=== PATIENT | male | born 1930 | race Caucasian/White ===

== ENCOUNTER 2017-05-06 04:22 | Inpatient (IN) | payer OTHER ==
[2017-05-06] VITALS (7 sets, daily range): BP systolic 99–146; BP diastolic 60–89; PULSE 62–87; TEMP 36.9–37; O2SAT 90–94; Ht 167.6 cm; Wt 77.5 kg
[~2017-05-06] VITALS: Ht 167.6 cm; Wt 77.5 kg
[~2017-05-06 04:22] MED LIST: ALPR0.25 PO; AMLO-110 PO; ASPI-435 PO; LISI1TAB3 PO; MULT-188 PO; MULT-506 PO; PRLSR20 PO; SIMV20TA2 PO; SULF800T23 PO; WARF2TAB PO; WARF5TAB90 PO
--- NOTE | 2017-05-06 04:42 | EMERGENCY ROOM VISIT NOTE ---
History Report prepared by Jeremiah: Caprice Ray Under the Supervision of: Dr. Justice Mcnulty M.D. First contact with patient: 04:34 Chief Complaint: RESPIRATORY PROBLEMS Stated Complaint: HARD TO BREATHE History of Present Illness The patient is a 86 year old male who presents to the Emergency Room with complaints of shortness of breath beginning prior to arrival. The patient states that he had indigestion earlier today and that he has been coughing frequently. He denies falling or hitting his head. Additionally, the patient denies any headaches, abdominal pain, and chest pain. The patient states that he is on Coumadin. Source of History: patient Onset: prior to arrival Position: chest Quality: other (shortness of breath) Associated Symptoms: + cough, No headache Review of Systems See HPI for pertinent positives & negatives. A total of 10 systems reviewed and were otherwise negative. Past Medical & Surgical Medical Problems: (1) Atrial fibrillation (2) left hip DJD Family History No pertinent family history stated. Social History Smoking Status: Never Smoker Drug Use: none Marital Status: Housing Status: lives with significant other Occupation Status: retired Current/Historical Medications Scheduled Amlodipine (Norvasc), 5 MG PO DAILY Aspirin (Aspirin 81), 81 MG PO DAILY Lisinopril (Zestril), 30 MG PO DAILY Multiple Vitamins W/ Minerals (Ocuvite), 1 TAB PO DAILY Multivitamin (Multivitamin), 1 TAB PO DAILY Omeprazole (Prilosec), 20 MG PO DAILY Simvastatin (Zocor), 20 MG PO HS Warfarin Sod (Coumadin), 5 MG PO 5XWK Warfarin Sod (Coumadin), 7.5 MG PO 2XWK Scheduled PRN Alprazolam (Xanax), 0.25 MG PO TID PRN for Anxiety/Agitation Allergies Coded Allergies: Iodinated Diagnostic Agents (Unverified Allergy, Unknown, HIVES, 05/30/15) Physical Exam Vital Signs Date Time Temp Pulse Resp B/P (MAP) Pulse Ox O2 Delivery O2 Flow Rate FiO2 05/06/17 06:06 65 18 122/67 98 Nasal Cannula 2.0 05/06/17 04:40 95 05/06/17 04:37 85 Room Air 05/06/17 04:26 36.7 79 19 163/79 85 Room Air Physical Exam GENERAL: Patient is unwell appearing and in minimal distress. HEENT: No acute trauma, normocephalic atraumatic, mucous membranes moist, no nasal congestion, no scleral icterus. NECK: No stridor, no adenopathy, no meningismus, trachea is midline. LUNGS: No dyspnea. No wheeze, no rhonchi. Diffuse crackles. Decreased breath sounds in right lower lung. HEART: Regular rate and rhythm. No murmurs, rubs, gallops appreciated. ABDOMEN: Soft, nontender, bowel sounds positive, no masses appreciated, no peritonitis. BACK: No midline tenderness, no CVA tenderness EXTREMITIES: Normal motion all extremities, no cyanosis, no edema. NEUROLOGIC: Alert and oriented, no acute motor or sensory deficits, no focal weakness, cranial nerves grossly intact. SKIN: No rash, no jaundice, no diaphoresis. Medical Decision & Procedures ER Provider Diagnostic Interpretation: X ray results are stated below per my interpretation and the radiologist's interpretation. 1 view: Large right sided infiltrate. No effusion. Mildly enlarged heart. Pacemaker in left upper chest. Laboratory Results 05/06/17 04:42 Red Blood Count 4.60, Mean Corpuscular Volume 92.8, Mean Corpuscular Hemoglobin 31.7, Mean Corpuscular Hemoglobin Concent 34.2, Mean Platelet Volume 9.0, Neutrophils (%) (Auto) 88.1, Lymphocytes (%) (Auto) 8.3, Monocytes (%) (Auto) 2.7, Eosinophils (%) (Auto) 0.5, Basophils (%) (Auto) 0.1, Neutrophils # (Auto) 9.82, Lymphocytes # (Auto) 0.93, Monocytes # (Auto) 0.30, Eosinophils # (Auto) 0.06, Basophils # (Auto) 0.01 05/06/17 04:42 Test 05/06/17 04:42 05/06/17 04:55 05/06/17 05:58 White Blood Count 11.15 K/uL (4.8-10.8) Red Blood Count 4.60 M/uL (4.7-6.1) Hemoglobin 14.6 g/dL (14.0-18.0) Hematocrit 42.7 % (42-52) Mean Corpuscular Volume 92.8 fL (80-100) Mean Corpuscular Hemoglobin 31.7 pg (25-34) Mean Corpuscular Hemoglobin Concent 34.2 g/dl (32-36) Platelet Count 190 K/uL (130-400) Mean Platelet Volume 9.0 fL (7.4-10.4) Neutrophils (%) (Auto) 88.1 % Lymphocytes (%) (Auto) 8.3 % Monocytes (%) (Auto) 2.7 % Eosinophils (%) (Auto) 0.5 % Basophils (%) (Auto) 0.1 % Neutrophils # (Auto) 9.82 K/uL (1.4-6.5) Lymphocytes # (Auto) 0.93 K/uL (1.2-3.4) Monocytes # (Auto) 0.30 K/uL (0.11-0.59) Eosinophils # (Auto) 0.06 K/uL (0-0.5) Basophils # (Auto) 0.01 K/uL (0-0.2) RDW Standard Deviation 49.6 fL (36.4-46.3) RDW Coefficient of Variation 14.7 % (11.5-14.5) Immature Granulocyte % (Auto) 0.3 % Immature Granulocyte # (Auto) 0.03 K/uL (0.00-0.02) Prothrombin Time 21.4 SECONDS (9.0-12.0) Prothromb Time International Ratio 1.9 (0.9-1.1) Activated Partial Thromboplast Time 29.2 SECONDS (21.0-31.0) Partial Thromboplastin Ratio 1.1 Anion Gap 7.0 mmol/L (3-11) Est Creatinine Clear Calc Drug Dose 43.3 ml/min Estimated GFR () 63.1 Estimated GFR (Non- 54.4 BUN/Creatinine Ratio 21.8 (10-20) Calcium Level 8.2 mg/dl (8.5-10.1) Magnesium Level 2.0 mg/dl (1.8-2.4) Total Creatine Kinase 199 U/L (39-308) Creatine Kinase MB 3.8 ng/ml (0.5-3.6) Creatine Kinase MB Ratio 1.9 (0-3.0) Troponin I 0.022 ng/ml (0-0.045) Pro-B-Type Natriuretic Peptide 1732 pg/ml (0-1800) Bedside Lactic Acid Venous 3.14 mmol/L (0.90-1.70) Laboratory results as reviewed by me. Medications Administered Medications (Trade) Dose Ordered Sig/Jace Route Start Time Stop Time Status Last Admin Dose Admin Levofloxacin (Levaquin / D5W) 750 mg NOW STAT IV 05/06/17 05:07 05/06/17 05:08 DC 05/06/17 05:12 750 MG Sodium Chloride 1,000 ml @ 999 mls/hr Q1H1M STAT IV 05/06/17 05:12 05/06/17 06:12 DC 05/06/17 05:55 999 MLS/HR ECG Indication: SOB/dyspnea Rate (beats per minute): 69 Rhythm: atrial fibrillation Findings: RBBB, T-wave inversion (deep inferior and lateral), other (period paced complexes) ED Course 0434: The patient was evaluated in room A10. A complete history and physical exam was performed. 0506: The patient reports feeling much better on nasal cannula. 0507: Ordered Levofloxacin 750 mg IV. 1512: Ordered Sodium Chloride 1,000 ml @ 999 mls/hr IV. 0545: Ordered Methylprednisolone Sodium Succinate 40 mg//Syringe 0.64 @ 1.5 mls/ min IV. 0553: I checked on the patient and he is stable. 0600: Upon reevaluation, the patient is resting. Discussed results and treatment plan with the patient. He verbalized understanding and agreement with the treatment plan. The patient will be evaluated for further management. Medical Decision Differential: Infectious, Reactive Airway Disease, Pneumonia, Pneumothorax, COPD , CHF, ACS, Pulmonary Embolism, MSK, GI, Dissection, amongst other etiologies entertained. Blood pressure screening: Patient was found to have an elevated blood pressure, but will be admitted by hospitalist with further treatment/management. Medication Reconciliation: I attest that I have personally reviewed the patient 's current medication list. 86 yr old male arrives with acutely worsening SHOB over last 12-24 hours. Hypoxia with quite poor lung sounds, especially RLL. CXR with large right infiltrate. WBC just mild elevation. No fever. Lactic acid elevated though suspect this is more hypoxia related rather than sepsis. Will hydrate with 1 L NSS as I feel overly aggressive hydration would lead to acute CHF. Feeling much better with NC O2. May require CT chest at some point though currently will defer to hospitalist as he is stable and feeling better with NC O2. Consults Time Called: [phone] Consulting Physician: Dr. Wong- Internal Medicine Returned Call: 05 Discussed the patient's case. The patient will be evaluated for further treatment and disposition. Impression Primary Impression: Pneumonia involving right lung Additional Impressions: Hypoxia Lactic acidosis Scribe Attestation The scribe's documentation has been prepared under my direction and personally reviewed by me in its entirety. I confirm that the note above accurately reflects all work, treatment, procedures, and medical decision making performed by me. Departure Information Dispostion Being Evaluated By Hospitalist Referrals Kj Elkins D.ORobin (PCP) Patient Instructions [facility] Problem Qualifiers
[2017-05-06 04:56] LABS: BASO % 0.1 %; BASO ABS # 0.01 K/uL (0-0.2); COMPLETE YES; EOS % 0.5 %; HEMATOCRIT 42.7 % (42-52); IG% 0.3 %; LYMPH % 8.3 %; LYMPH ABS # 0.93 K/uL (1.2-3.4); MEAN CELL VOLUME 92.8 fL (80-100); MEAN CORPUSCULAR HEMOGLOBIN 31.7 pg (25-34); MEAN CORPUSCULAR HGB CONC 34.2 g/dl (32-36); MONO % 2.7 %; NEUT % 88.1 %; PLATELET COUNT 190 K/uL (130-400); WHITE BLOOD COUNT 11.15 K/uL (4.8-10.8)
[2017-05-06] MEDS ORDERED: LEVAQUIN 750MG / 150ML D5W IV STA (05:07)
[2017-05-06 05:08] LABS: INR 1.9 (0.9-1.1); PARTIAL THROMBOPLASTIN RATIO 1.1; PROTHROMBIN TIME (PATIENT) 21.4 SECONDS (9.0-12.0)
[2017-05-06] MEDS ORDERED: SODIUM CHLORIDE 0.9% 1000ML 1,000 ML IV STA (05:12)
[2017-05-06] MEDS ORDERED: CMD/25 PO ×2 (05:21)
[2017-05-06 05:29] LABS: BUN/CREATININE RATIO 21.8 (10-20); CALCIUM 8.2 mg/dl (8.5-10.1); CREATININE 1.2 mg/dl (0.60-1.40)
[2017-05-06 05:34] LABS: CKMB/CK RATIO 1.9 (0-3.0)
[2017-05-06] MEDS ORDERED: METHYLPREDNISOLONE IV 40 MG in SYRINGE 0 ML IV ONE (05:45)
[2017-05-06] MEDS ORDERED: BENZONATATE 100MG CAP PO PRN (06:45)
[2017-05-06] MEDS ORDERED: ALBUT/IPRATROP 3MG/0.5MG NEB 3 ML VIAL INH PRN (06:45)
[2017-05-06] MEDS ORDERED: ALPRAZOLAM 0.25 MG TAB PO PRN (06:45)
[2017-05-06] MEDS ORDERED: ACETAMINOPHEN 325 MG TAB PO PRN (06:45)
--- NOTE | 2017-05-06 06:48 | DIAGNOSTIC IMAGING REPORT ---
CHEST ONE VIEW PORTABLE CLINICAL HISTORY: [facility] dyspnea COMPARISON STUDY: 03/19/2014 FINDINGS: Diffuse parenchymal infiltrate right hemithorax. Underlying nodular component. Left lung is clear. Diaphragms are smooth. Heart is moderately enlarged. IMPRESSION: Diffuse parenchymal infiltrate somewhat nodular appearance right lung. Electronically signed by: Carlos Bolanos M.D. 05/06/2017 6:47 AM Dictated Date/Time: 05/06/2017 6:46 AM
[2017-05-06] MEDS ORDERED: SODIUM CHLORIDE 0.45% 1000ML 1,000 ML IV ONE (07:15)
[2017-05-06] MEDS: IPRATROPIUM BROMIDE NEB SOLN 0.02% 2.5 ML VIAL INH SCH ×3 (09:00→18:30)
[2017-05-06] MEDS: LEVALBUTEROL 1.25MG/0.5ML NEB INH SCH ×3 (09:00→18:30)
[2017-05-06] MEDS ORDERED: LEVALBUTEROL/IPRATROPIUM NEB INH SCH (09:00)
--- NOTE | 2017-05-06 09:32 | HISTORY & PHYSICAL EXAMINATION ---
DATE OF ADMISSION: 05/06/2017 PRIMARY CARE PHYSICIAN: Dr. Lor Elkins CHIEF COMPLAINT: Cough, shortness of breath. HISTORY OF PRESENT ILLNESS: History obtained from patient and records. Medical history significant for Afib status post PPM on anticoagulation, hypertension, past tobacco abuse. Recent confinement in May of 2015 for left upper extremity cellulitis hematoma. Yesterday, patient noted some stomach upset. Denies some nausea, no emesis, dry cough symptoms, later blood tinged, not grossly purulent. No actual chest pain, increasing shortness of breath. No fever, no chills. Denies aspiration. no unusual weight loss. At the Emergency Room the patient noted to have O2 sats 80s on room air. Given Levaquin for pneumonia. MEDICAL HISTORY: As above. SURGERIES: Pacemaker placement, hip and shoulder surgery. HOME MEDICATIONS: Include amlodipine, simvastatin, lisinopril, fluticasone, omeprazole, alprazolam, Coumadin, multivitamins. ALLERGIES: DYE, METOPROLOL. FAMILY HISTORY: Family history of heart disease. PERSONAL AND SOCIAL HISTORY: past tobacco abuse, no chronic intake of alcoholic beverages. REVIEW OF SYSTEMS: As per HPI, all other ROS negative. PHYSICAL EXAMINATION: VITAL SIGNS: Blood pressure was noted to be 160/79 later 130/80, pulse rate 65, RR 18, temperature 36.7, sats 86 RA later 96 on 2 liters. GENERAL: Noted to be slightly anxious. no respiratory distress. looks young for stated age SKIN: Normal color. HEAD, EYES, EARS, NOSE, AND THROAT: Alopecia. Joy palpebral conjunctivae, dry buccal mucosa. NECK: No JVD. Supple. CHEST: Decreased breath sounds. HEART: irreg ABDOMEN: Soft. NT EXTREMITIES: No edema. no tenderness NEUROLOGIC: No gross focality. LABORATORY DATA: Hemoglobin was noted to be 14.6, white cell count 11, platelets 190. Sodium 138, potassium 4, chloride 109, CO2 28, BUN 26, creatinine 1.2, glucose 119, POC lactic acid was 3.14. INR 1.9 Chest x-ray as per my interpretation infiltrate on the right. EKG as per my interpretation, rate of 70, atrial fib, incomplete right bundle branch block, T-wave inversion in inferolateral leads. ASSESSMENT AND PLAN: 1. Acute hypoxemic resp failure secondary to community-acquired pneumonia. no overt sepsis 2. Hemoptysis secondary to above, px hemodynamically stable. 3. History of atrial fibrillation sp PPM, rate controlled. INR slightly subtherapeutic. 4. coronary artery disease as per records. 5. past tobacco abuse GMF supplemental O2 baseline ABG Levaquin course, Solu-Medrol one dose now nebs RTC, p.r.n. anti-tussives prn CT chest RE hemoptysis. Hold home aspirin and Coumadin for now and resume if wo further bleeding with HH stable May need Pulmo input if w/ further bouts of hemoptysis DVT prophylaxis, SCDs while INR less than 2 while Coumadin on hold FULL CODE. MTDD
[2017-05-06] MEDS: PANTOprazole SOD 40 MG TAB PO SCH (10:23)
[2017-05-06] MEDS: CEROVITE ADV FORMULA TAB PO SCH (10:23)
[2017-05-06] MEDS: LISINOPRIL 10 MG TAB PO SCH (10:23)
[2017-05-06] MEDS: GUAIFENESIN 600 MG TABCR PO SCH ×2 (10:24→20:31)
[2017-05-06] MEDS: AMLODIPINE BESYLATE 5 MG TAB PO SCH (10:24)
--- NOTE | 2017-05-06 10:29 | DIAGNOSTIC IMAGING REPORT ---
CHEST CT WITHOUT CONTRAST CT DOSE: 516.62 mGy.cm HISTORY: Pneumonia hemoptysis TECHNIQUE: Multiaxial CT images of the chest were performed without contrast. COMPARISON: None. FINDINGS: Consolidative parenchymal infiltrate throughout the right hemithorax. This involves right upper as well as right lower lobe region. There is a small right effusion. There is trace amount pleural fluid left base. Bulky left hemithorax is clear. There is an underlying nodular component of the right hemithorax. This may be infiltrative change although follow-up at a later date is recommended to ensure complete resolution and exclude a true underlying nodular component. Heart is moderately enlarged. There are several reactive mediastinal and/or hilar nodes measuring up to 1 cm. These are indeterminate. IMPRESSION: 1. Diffuse consolidative right hemithoracic infiltrate with an underlying nodular component. 2. Although statistically most likely inflammatory, follow-up to ensure complete resolution is suggested to exclude residual pathologic nodularity. 3. Moderate cardiomegaly. 4. Trace pleural fluid left base. Electronically signed by: Carlos Bolanos M.D. 05/06/2017 10:28 AM Dictated Date/Time: 05/06/2017 10:25 AM
[2017-05-06 12:12] LABS: HEMATOCRIT 38.8 % (42-52)
--- NOTE | 2017-05-06 19:00 | Progress Note ---
Progress Note Date of Service May 06, 2017. Progress Note ATTENDING NOTE : pt admitted earlier to day presented to ED with cough /SOB CT chest shows : 1. Diffuse consolidative right hemithoracic infiltrate with an underlying nodular component. 2. Although statistically most likely inflammatory, follow-up to ensure complete resolution is suggested to exclude residual pathologic nodularity. 3. Moderate cardiomegaly. 4. Trace pleural fluid left base. P/E: gen : no apparent distress HEENT ; NAD Lungs : crackles on rt base HT : regular S1/S2 abdomen ; soft ,non tender ext ; no lower ext edema Neuro ; no focal deficit A/P : Rt sided Pneumonia : possible community acquired denies of any aspiration syndrome symptom improved , minimum cough , no hypoxia , in RA empiric Abx with Levaquin follow culture IVF D/fermin OOB and increase activity as tolerated PT/Ot eval possible discharge home tomorrow -multiple family members at home , updated
[2017-05-06] MEDS ORDERED: SIMVASTATIN 20 MG TAB PO SCH (21:00)
[2017-05-06] MEDS ORDERED: WARFARIN SOD 5 MG TAB PO ONE (21:30)
[2017-05-07] MEDS: LEVALBUTEROL 1.25MG/0.5ML NEB INH SCH ×2 (03:00→07:21)
[2017-05-07] MEDS: IPRATROPIUM BROMIDE NEB SOLN 0.02% 2.5 ML VIAL INH SCH ×2 (03:00→07:21)
[2017-05-07 07:21] VITALS: PULSE 75; O2SAT 93
[2017-05-07 07:41] VITALS: BP 118/69; PULSE 77; TEMP 36.5; O2SAT 92
[2017-05-07 07:50] LABS: BASO % 0.1 %; BASO ABS # 0.01 K/uL (0-0.2); COMPLETE YES; IG% 0.4 %; LYMPH % 7.7 %; LYMPH ABS # 1.33 K/uL (1.2-3.4); MEAN CELL VOLUME 91.6 fL (80-100); MEAN CORPUSCULAR HEMOGLOBIN 30.5 pg (25-34); MEAN CORPUSCULAR HGB CONC 33.2 g/dl (32-36); MEAN PLATELET VOLUME 9.1 fL (7.4-10.4); MONO % 6.1 %; NEUT % 85.7 %; PLATELET COUNT 172 K/uL (130-400); RED BLOOD COUNT 3.71 M/uL (4.7-6.1); WHITE BLOOD COUNT 17.36 K/uL (4.8-10.8)
[2017-05-07 08:00] LABS: PROTHROMBIN TIME (PATIENT) 22.5 SECONDS (9.0-12.0)
[2017-05-07] MEDS: AMLODIPINE BESYLATE 5 MG TAB PO SCH (08:14)
[2017-05-07] MEDS: GUAIFENESIN 600 MG TABCR PO SCH (08:14)
[2017-05-07] MEDS: PANTOprazole SOD 40 MG TAB PO SCH (08:16)
[2017-05-07] MEDS: CEROVITE ADV FORMULA TAB PO SCH (08:16)
[2017-05-07] MEDS: LISINOPRIL 10 MG TAB PO SCH (08:17)
[2017-05-07 08:25] LABS: BUN/CREATININE RATIO 23.9 (10-20); CREATININE 1.2 mg/dl (0.60-1.40); POTASSIUM 3.9 mmol/L (3.5-5.1)
[2017-05-07] MEDS ORDERED: MULTIVITAMIN TAB PO SCH (09:00)
[2017-05-07] MEDS ORDERED: ASPIRIN 81 MG ECTAB PO SCH (09:00)
[2017-05-07] MEDS ORDERED: LEVOFLOXACIN CONSULT ACTIVE PRN (09:00)
[2017-05-07 09:54] VITALS: O2SAT 92
[2017-05-07] MEDS ORDERED: GFNSR600 PO (12:24)
[2017-05-07] MEDS ORDERED: BENZ100C7 PO (12:24)
--- NOTE | 2017-05-07 12:27 | Discharge Instructions ---
Discharge Instructions Date of Service May 07, 2017. Admission Reason for Admission: Respiratory Failure, Acute Discharge Discharge Diagnosis / Problem: COMMUNITY ACQUIRED PNEUMONIA ON RT SIDE Discharge Goals Goal(s): Decrease discomfort, Improve disease control, Diagnostic testing Activity Recommendations Activity Limitations: resume your previous activity . Instructions / Follow-Up Instructions / Follow-Up HOSPITAL FOLLOW UP AT [facility] IN A WEEK , OFFICE WILL CALL WITH APPOINTMENT CT CHEST WITH OUT CONTRAST IN 1 MONTHS TO ASSESS RESOLUTION OF RT SIDED NODULAR INFILTRATE WILL NEED PULMONOLOGY FOLLOW UP THERE IS PERSISTENCE OF PULMONARY NODULE LAB WORK : CBC , PT/INR ON Monday05/09/17 Current Hospital Diet Patient's current hospital diet: AHA Diet (Heart Healthy) Discharge Diet Recommended Diet: AHA Diet (Heart Healthy) Pending Studies Studies pending at discharge: yes List of pending studies: LAB WORK : CBC , PT/INR ON Monday05/09/17 Medical Emergencies . Who to Call and When: Medical Emergencies: If at any time you feel your situation is an emergency, please call 911 immediately. . Non-Emergent Contact Non-Emergency issues call your: Primary Care Provider . . "Provider Documentation" section prepared by Vivi Purcell. . VTE Core Measure Inpt VTE Proph given/why not?: Unfractionated heparin SQ
[2017-05-07] MEDS ORDERED: LVQ250 PO (12:29)
[2017-05-07] MEDS ORDERED: LEVOFLOXACIN 500 MG TAB PO ONE (12:30)
--- NOTE | 2017-05-07 12:34 | Progress Note ---
Internal Med Progress Note Date of Service: May 07, 2017. Provider Documentation: SUBJECTIVE: pt found walking on hallway had multiple laps since am no VENTURA , no hypoxia , in RA . no episode of hemoptysis has cough , improved since yesterday no fever or chills feels well enough to go home OBJECTIVE: Vital Signs-as noted below Exam: General-no sign of distress Eyes-sclera non icteric Lungs-faint crackles on rt lung , improved auscultation from prior Heart-regular S1/S2 Abdomen-soft,non tender Extremities-no lower ext edema Neuro-AAo x3, no focal deficit Lab data as noted below. ASSESSMENT & PLAN: HYPOXIA /SOB /RT SIDED COMMUNITY ACQUIRED PNEUMONIA : clinically better , not hypoxic walking independently in [address] no fever or chills has minimum cough CT chest with out contrast ( pt has dye allergy ) : 1. Diffuse consolidative right hemithoracic infiltrate with an underlying nodular component. 2. Although statistically most likely inflammatory, follow-up to ensure complete resolution is suggested to exclude residual pathologic nodularity. 3. Moderate cardiomegaly. 4. Trace pleural fluid left base. -clinically improved with Empiric tx with Levaquin -Blood cultures been negative stable to be discharged home with PO Levaquin X5 more days -dose adjusted for renal clearance repeat CT chest recommended in 1 months to assess resolution of rt sided lung nodularity will need Pulmonology follow up if persisted Lung nodularity noted LEUKOCYTOSIS : possible steroid induced pt was given IV Solu Medrol in ED no evidence of sepsis no SOB /or hypoxia , no fever or chills blood cultures -negative repeat Blood work in next 2 days to assess improvement of leukocytosis HX OF PAROXYSMAL AFIB : rate controlled on Coumadin HTN : BP Stable cont Norvasc and ACEI HYPERLIPIDEMIA ; Cont Statin DVT PROPHYLAXIS On Coumadin DISPOSITION stable to be discharged home today Medicine follow up at [facility] Vital Signs: Date Time Temp Pulse Resp B/P (MAP) Pulse Ox O2 Delivery O2 Flow Rate FiO2 05/07/17 09:54 92 05/07/17 07:41 36.5 77 18 118/69 (85) 92 Room Air 05/07/17 07:21 75 16 93 Room Air 05/06/17 22:56 37.0 63 20 99/60 (73) 94 Room Air 05/06/17 18:30 64 14 94 Room Air 05/06/17 16:00 90 05/06/17 15:13 36.9 62 18 123/70 (87) 90 Room Air 05/06/17 14:46 87 14 94 Room Air Lab Results: Results Past 24 Hours Test 05/07/17 07:00 Range/Units White Blood Count 17.36 4.8-10.8 K/uL Red Blood Count 3.71 4.7-6.1 M/uL Hemoglobin 11.3 14.0-18.0 g/dL Hematocrit 34.0 42-52 % Mean Corpuscular Volume 91.6 80-100 fL Mean Corpuscular Hemoglobin 30.5 25-34 pg Mean Corpuscular Hemoglobin Concent 33.2 32-36 g/dl Platelet Count 172 130-400 K/uL Mean Platelet Volume 9.1 7.4-10.4 fL Neutrophils (%) (Auto) 85.7 % Lymphocytes (%) (Auto) 7.7 % Monocytes (%) (Auto) 6.1 % Eosinophils (%) (Auto) 0.0 % Basophils (%) (Auto) 0.1 % Neutrophils # (Auto) 14.89 1.4-6.5 K/uL Lymphocytes # (Auto) 1.33 1.2-3.4 K/uL Monocytes # (Auto) 1.06 0.11-0.59 K/uL Eosinophils # (Auto) 0.00 0-0.5 K/uL Basophils # (Auto) 0.01 0-0.2 K/uL RDW Standard Deviation 50.3 36.4-46.3 fL RDW Coefficient of Variation 14.8 11.5-14.5 % Immature Granulocyte % (Auto) 0.4 % Immature Granulocyte # (Auto) 0.07 0.00-0.02 K/uL Prothrombin Time 22.5 9.0-12.0 SECONDS Prothromb Time International Ratio 2.0 0.9-1.1 Sodium Level 143 136-145 mmol/L Potassium Level 3.9 3.5-5.1 mmol/L Chloride Level 108 98-107 mmol/L Carbon Dioxide Level 25 21-32 mmol/L Anion Gap 10.0 3-11 mmol/L Blood Urea Nitrogen 29 7-18 mg/dl Creatinine 1.20 0.60-1.40 mg/dl Est Creatinine Clear Calc Drug Dose 43.3 ml/min Estimated GFR () 63.1 Estimated GFR (Non- 54.4 BUN/Creatinine Ratio 23.9 10-20 Random Glucose 93 70-99 mg/dl Calcium Level 8.0 8.5-10.1 mg/dl Microbiology Results 05/07/17 Gram Stain - Final, Complete 05/07/17 Sputum Culture - Final, Complete
--- NOTE | 2017-05-07 12:42 | Discharge Summary ---
Discharge Summary Date of Service May 07, 2017. Discharge Summary Admission Date: May 06, 2017 at 06:22 Discharge Date: May 07, 2017 Discharge Disposition: Home Principal Diagnosis: COMMUNITY ACQUIRED PNEUMONIA ON RT SIDE Procedures: CT CHEST WITH OUT CONTRAST : IMPRESSION: 1. Diffuse consolidative right hemithoracic infiltrate with an underlying nodular component. 2. Although statistically most likely inflammatory, follow-up to ensure complete resolution is suggested to exclude residual pathologic nodularity. 3. Moderate cardiomegaly. 4. Trace pleural fluid left base. Medication Reconciliation New Medications: Levofloxacin (Levofloxacin) 250 Mg Tab 1 TAB PO DAILY for 5 Days, #5 TABS Benzonatate (Benzonatate) 100 Mg Cap 100 MG PO Q8H PRN for Cough, #30 CAP Guaifenesin Ext Rel (Mucinex Ext Rel) 600 Mg Tabcr 600 MG PO Q12, #30 OVER THE COUNTER Continued Medications: Alprazolam (Xanax) 0.25 Mg Tab 0.25 MG PO TID PRN for Anxiety/Agitation, TAB Amlodipine (Norvasc) 5 Mg Tab 5 MG PO DAILY, TAB Aspirin (Aspirin 81) 81 Mg Tab 81 MG PO DAILY Lisinopril (Zestril) 30 Mg Tab 30 MG PO DAILY, TAB Multiple Vitamins W/ Minerals (Ocuvite) 1 Tab Tab 1 TAB PO DAILY Multivitamin (Multivitamin) Tab 1 TAB PO DAILY, TAB Omeprazole (Prilosec) 20 Mg Capcr 20 MG PO DAILY, CAP Simvastatin (Zocor) 20 Mg Tab 20 MG PO HS, TAB Warfarin Sod (Coumadin) 2.5 Mg Tab 5 MG PO 5XWK, 3 Refills take 2 tabs daily on ,mon,,mon,sundays Warfarin Sod (Coumadin) 2.5 Mg Tab 7.5 MG PO 2XWK take 3 tabs daily on mondays & fridays Admission Information HPI (per Admitting provider): DATE OF ADMISSION: 05/06/2017 PRIMARY CARE PHYSICIAN: Dr. Lor Elkins CHIEF COMPLAINT: Cough, shortness of breath. HISTORY OF PRESENT ILLNESS: History obtained from patient and records. Medical history significant for Afib status post PPM on anticoagulation, hypertension, past tobacco abuse. Recent confinement in May of 2015 for left upper extremity cellulitis hematoma. Yesterday, patient noted some stomach upset. Denies some nausea, no emesis, dry cough symptoms, later blood tinged, not grossly purulent. No actual chest pain, increasing shortness of breath. No fever, no chills. Denies aspiration. no unusual weight loss. At the Emergency Room the patient noted to have O2 sats 80s on room air. Given Levaquin for pneumonia. MEDICAL HISTORY: As above. SURGERIES: Pacemaker placement, hip and shoulder surgery. HOME MEDICATIONS: Include amlodipine, simvastatin, lisinopril, fluticasone, omeprazole, alprazolam, Coumadin, multivitamins. ALLERGIES: DYE, METOPROLOL. FAMILY HISTORY: Family history of heart disease. PERSONAL AND SOCIAL HISTORY: past tobacco abuse, no chronic intake of alcoholic beverages. Physical Exam (per Admitting): REVIEW OF SYSTEMS: As per HPI, all other ROS negative. PHYSICAL EXAMINATION: VITAL SIGNS: Blood pressure was noted to be 160/79 later 130/80, pulse rate 65, RR 18, temperature 36.7, sats 86 RA later 96 on 2 liters. GENERAL: Noted to be slightly anxious. no respiratory distress. looks young for stated age SKIN: Normal color. HEAD, EYES, EARS, NOSE, AND THROAT: Alopecia. [employer] palpebral conjunctivae, dry buccal mucosa. NECK: No JVD. Supple. CHEST: Decreased breath sounds. HEART: irreg ABDOMEN: Soft. NT EXTREMITIES: No edema. no tenderness NEUROLOGIC: No gross focality. Hospital Course HYPOXIA /SOB /RT SIDED COMMUNITY ACQUIRED PNEUMONIA : clinically better , not hypoxic walking independently in [address] no fever or chills has minimum cough CT chest with out contrast ( pt has dye allergy ) : 1. Diffuse consolidative right hemithoracic infiltrate with an underlying nodular component. 2. Although statistically most likely inflammatory, follow-up to ensure complete resolution is suggested to exclude residual pathologic nodularity. 3. Moderate cardiomegaly. 4. Trace pleural fluid left base. -clinically improved with Empiric tx with Levaquin -Blood cultures been negative stable to be discharged home with PO Levaquin X5 more days -dose adjusted for renal clearance repeat CT chest recommended in 1 months to assess resolution of rt sided lung nodularity will need Pulmonology follow up if persisted Lung nodularity noted LEUKOCYTOSIS : possible steroid induced pt was given IV Solu Medrol in ED no evidence of sepsis no SOB /or hypoxia , no fever or chills blood cultures -negative repeat Blood work in next 2 days to assess improvement of leukocytosis HX OF PAROXYSMAL AFIB : rate controlled on Coumadin HTN : BP Stable cont Norvasc and ACEI HYPERLIPIDEMIA ; Cont Statin DVT PROPHYLAXIS On Coumadin DISPOSITION stable to be discharged home today Medicine follow up at [facility] Total time spent on discharge = 35 MINS This includes examination of the patient, discharge planning, medication reconciliation, and communication with other providers. Discharge Instructions Discharge Instructions Date of Service May 07, 2017. Admission Reason for Admission: Respiratory Failure, Acute Discharge Discharge Diagnosis / Problem: COMMUNITY ACQUIRED PNEUMONIA ON RT SIDE Discharge Goals Goal(s): Decrease discomfort, Improve disease control, Diagnostic testing Activity Recommendations Activity Limitations: resume your previous activity . Instructions / Follow-Up Instructions / Follow-Up HOSPITAL FOLLOW UP AT [facility] IN A WEEK , OFFICE WILL CALL WITH APPOINTMENT CT CHEST WITH OUT CONTRAST IN 1 MONTHS TO ASSESS RESOLUTION OF RT SIDED NODULAR INFILTRATE WILL NEED PULMONOLOGY FOLLOW UP THERE IS PERSISTENCE OF PULMONARY NODULE LAB WORK : CBC , PT/INR ON Monday05/09/17 Current Hospital Diet Patient's current hospital diet: AHA Diet (Heart Healthy) Discharge Diet Recommended Diet: AHA Diet (Heart Healthy) Pending Studies Studies pending at discharge: yes List of pending studies: LAB WORK : CBC , PT/INR ON Monday05/09/17 Medical Emergencies . Who to Call and When: Medical Emergencies: If at any time you feel your situation is an emergency, please call 911 immediately. . Non-Emergent Contact Non-Emergency issues call your: Primary Care Provider . . "Provider Documentation" section prepared by Vivi Purcell. . VTE Core Measure Inpt VTE Proph given/why not?: Unfractionated heparin SQ Additional Copies To Lor Elkins D.O.
[2017-05-07 12:50] VITALS: O2SAT 94
[2017-05-07 12:55] VITALS: BP 118/69; PULSE 77; TEMP 36.5; O2SAT 92
[2017-05-07] MEDS ORDERED: WARFARIN SOD 5 MG TAB PO SCH (16:00)
[2017-05-08] MEDS ORDERED: LEVOFLOXACIN 750 MG TAB PO SCH (11:00)
[2017-05-08] MEDS ORDERED: WARFARIN SOD 7.5 MG TAB PO SCH (16:00)
[2017-09-21] MEDS ORDERED: LEVO1TAB33 PO (07:35)
[2017-09-21] MEDS ORDERED: LEVO-366 PO (09:14)
== END 2017-05-07 15:40 | disposition home or self-care (01) | DRG 193 ==
LOC: C.EDB 04:23 → C.MS2W 06:22 → ENRESERV 06:34
PROVIDERS: ADMIT Hospitalist; ATTEND Hospitalist
DX: J18.9 Pneumonia, unspecified organism (principal); J96.01 Acute respiratory failure with hypoxia; E87.2 Acidosis; R04.2 Hemoptysis; I48.0 Paroxysmal atrial fibrillation; D72.829 Elevated white blood cell count, unspecified; T38.0X5A Adverse effect of glucocorticoids and synthetic analogues, initial encounter; I10 Essential (primary) hypertension; I25.10 Atherosclerotic heart disease of native coronary artery without angina pectoris; E78.5 Hyperlipidemia, unspecified; Z95.0 Presence of cardiac pacemaker; Z87.891 Personal history of nicotine dependence; Z79.82 Long term (current) use of aspirin; Z79.899 Other long term (current) drug therapy; Z79.01 Long term (current) use of anticoagulants; Z79.51 Long term (current) use of inhaled steroids